=== PATIENT | female | born 1975 ===

== ENCOUNTER 2017-09-09 09:00 | Day surgery (SDC) | payer MEDICAID ==
[2017-01-04 09:34] VITALS: BMI 30.2
--- NOTE | 2017-09-09 10:32 | CP.SDSHP ---
Same Day Surgery H & P - History Proposed Procedure: EGD Pre-Op Diagnosis: abdo pain / vomiting - Allergies Allergies: Allergies No Known Allergies Allergy (Verified 08/28/17 10:03) - Physical Exam General Appearance: nl Vital Signs: Vital Signs 09/09/17 09:39 Temperature 98.9 F Pulse Rate 80 Respiratory 20 Rate Blood Pressure 141/82 O2 Sat by Pulse 99 Oximetry Mental Status: Alert & Oriented x3 Neuro: WNL Heart: WNL Lungs: WNL GI: WNL - {Optional Preform as Required} Abdomen: WNL - Impression Impression: abdo pain / vomiting Pt. Evaluated Today:Candidate for Anesthesia & Procedure: Yes - Date & Time Date: 09/09/17 Time: 10:32 Short Stay Discharge - Short Stay Discharge Admitting Diagnosis/Reason for Visit: EPIGASTRIC PAIN / CONSTIPATION / DISTENTION Disposition: HOME/ ROUTINE
[2017-09-09] MEDS ORDERED: Propofol 10 mg/ml Inj (20 ML) ONE ×2 (10:33→10:38)
[2017-09-09] MEDS ORDERED: Lidocaine Hydrochloride 10 ML INJ ONE (10:33)
[2017-09-09 11:03] VITALS: TEMP 97.6
[2017-09-09 11:47] VITALS: PULSE 85; O2SAT 100
[2017-09-09 11:49] VITALS: BP 137/84; RESP 20
== END 2017-09-09 12:35 | disposition home or self-care (01) ==
LOC: C.ENDO 09:00
PROVIDERS: ATTEND Internal Medicine
DX: R10.13 Epigastric pain (principal); K59.09 Other constipation; R14.0 Abdominal distension (gaseous); B96.81 Helicobacter pylori [H. pylori] as the cause of diseases classified elsewhere; K29.50 Unspecified chronic gastritis without bleeding
CPT/HCPCS: 43239; 84703; 88305; 88313; 88342; J2704

== ENCOUNTER 2018-06-04 09:57 | Emergency (ER) | payer MEDICAID ==
[2018-06-04 10:04] VITALS: BMI 31.1
[2018-06-04 10:07] VITALS: BP 137/91; PULSE 104; RESP 18; TEMP 97.7; O2SAT 100
[2018-06-04] MEDS ORDERED: Naproxen 550 mg Tab PO STA (10:36)
[2018-06-04] MEDS ORDERED: Naproxen 550 mg Tab PO ONE (10:44)
--- NOTE | 2018-06-04 11:27 | C.PDOC ---
History Of Present Illness 42-year-old female presents to the emergency department with complaints of lower back pain since yesterday. Patient states she was cleaning the house and lifting heavy objects, and pain started afterwards. Patient states pain worsens with movement., and she reports a popping sensation when lifting. She is requesting Xrays of her back. Patient denies radiation to lower legs, dysuria/hematuria, urinary retention, bowel/bladder incontinence, sensory changes, or any other associated symptoms. Time Seen by Provider: 06/04/18 10:12 Chief Complaint (Nursing): Back Pain History Per: Patient History/Exam Limitations: no limitations Current Symptoms Are (Timing): Still Present Quality Of Discomfort: "Pain" Severity: Moderate Associated Symptoms: None. denies: Incontinence, New Weakness, New Numbness Exacerbating Factor(s): Movement Past Medical History Reviewed: Historical Data, Nursing Documentation, Vital Signs Vital Signs: Last Vital Signs Temp 97.7 F 06/04/18 10:04 Pulse 104 H 06/04/18 10:04 Resp 18 06/04/18 10:04 BP 137/91 H 06/04/18 10:04 Pulse Ox 100 06/04/18 10:04 - Medical History PMH: Asthma, Gastritis, Hypercholesterolemia Family History: States: Hypertension - Social History Hx Tobacco Use: No Hx Alcohol Use: Yes Hx Substance Use: No - Immunization History Hx Tetanus Toxoid Vaccination: No Hx Influenza Vaccination: No Hx Pneumococcal Vaccination: No Review Of Systems Constitutional: Negative for: Fever, Chills Respiratory: Negative for: Shortness of Breath Gastrointestinal: Negative for: Nausea, Vomiting, Abdominal Pain, Diarrhea Genitourinary: Negative for: Dysuria, Hematuria Musculoskeletal: Positive for: Back Pain Neurological: Negative for: Weakness, Numbness Physical Exam - Physical Exam Appears: Well, Non-toxic, In Acute Distress (in mild pain ) Skin: Normal Color, Warm, Dry, No Rash Eye(s): bilateral: Normal Inspection Oral Mucosa: Moist Neck: Normal, Normal ROM Cardiovascular: Rhythm Regular, No Murmur Respiratory: Normal Breath Sounds, No Rales, No Rhonchi, No Wheezing Gastrointestinal/Abdominal: Normal Exam, Bowel Sounds, Soft, No Tenderness Back: No CVA Tenderness, No Vertebral Tenderness, Paraspinal Tenderness (lumbar, B/L) Extremity: Normal ROM, No Deformity Extremity: Bilateral: Atraumatic, Normal Color And Temperature, Normal ROM Neurological/Psych: Oriented x3, Normal Sensation Gait: Steady ED Course And Treatment O2 Sat by Pulse Oximetry: 100 (RA) Pulse Ox Interpretation: Normal - Other Rad Xray LS spine X-Ray: Interpreted by Me, Viewed By Me (no fractures/listhesis) Progress Note: Xrays of LS spine ordered and reviewed. Patient given PO Naprosyn and Flexeril. Reevaluation Time: 11:20 Reassessment Condition: Improved (On reassessment, patient is resting comfortably and states pain has improved. She is ambulating normally in the ED. Rxs for naprosyn and flexeril given. Patient instructed to follow up with PMD/clinic in 1-2 days, and understands she should return to ED if symptoms worsen.) Disposition Counseled Patient/Family Regarding: Studies Performed, Diagnosis, Need For Followup, Rx Given - Disposition Referrals: [facility] [Outside] Disposition: HOME/ ROUTINE Disposition Time: 11:25 Condition: STABLE Additional Instructions: FOLLOW UP WITH YOUR DOCTOR/CLINIC IN 1-2 DAYS USE MEDICATIONS NEEDED RETURN TO EMERGENCY ROOM IF SYMPTOMS WORSEN SEGUIR CON DUMONT MDICO / CLNICA EN 1-2 BAIG USAR MEDICAMENTOS ROXANA SE NECESITE VUELVA A [place] DE EMERGENCIA SI LOS SNTOMAS SE HACEN PE[place] Prescriptions: RX: Cyclobenzaprine [Flexeril] 10 mg PO BID PRN #15 tab PRN Reason: Muscle Spasm RX: Naproxen 375 mg PO BID PRN #20 tablet PRN Reason: pain Instructions: Low Back Pain (DC) Forms: [employer] (Armenian) Print Language: CAMBODIAN - Clinical Impression Clinical Impression: Low back pain, Lumbar sprain - Scribe Statement The provider has reviewed the documentation as recorded by the Scribe (Anne Ramsey) Provider Attestation: All medical record entries made by the Scribe were at my direction and personally dictated by me. I have reviewed the chart and agree that the record accurately reflects my personal performance of the history, physical exam, medical decision making, and the department course for this patient. I have also personally directed, reviewed, and agree with the discharge instructions and disposition.
--- NOTE | 2018-06-04 11:46 | RAD ---
Date of service: The 06/04/2018 PROCEDURE: Radiographs of the Lumbar Spine. HISTORY: Low back pain COMPARISON: No prior. FINDINGS: BONES: There is normal alignment of the lumbar vertebral bodies. There is normal lumbar lordosis. There is no acute fracture, spondylolysis or spondylolisthesis. There is a limbus vertebra at L4. Bone mineralization is normal. DISC SPACES: Mild degenerative disc disease at L4-5 and L5-S1 with reduced disc heights, anterior spurring and facet arthropathy, worse at L5-S1. OTHER FINDINGS: An IUD overlies the pelvis. IMPRESSION: No acute fracture, spondylolysis or spondylolisthesis.
== END 2018-06-04 11:42 | disposition home or self-care (01) ==
LOC: C.ER 09:57
DX: S33.5XXA Sprain of ligaments of lumbar spine, initial encounter (principal); X50.0XXA Overexertion from strenuous movement or load, initial encounter; Y93.E9 Activity, other interior property and clothing maintenance; Y92.009 Unspecified place in unspecified non-institutional (private) residence as the place of occurrence of the external cause; M54.5 Low back pain

== ENCOUNTER 2018-10-21 08:49 | Emergency (ER) | payer MEDICAID ==
[2018-10-21 08:49] VITALS: BMI 31.1
[2018-10-21 09:06] VITALS: BP 143/88; PULSE 82; RESP 16; TEMP 97.9; O2SAT 100
--- NOTE | 2018-10-21 10:04 | C.PDOC ---
History Of Present Illness 43 y/o female presents to the ED for evaluation of ankle injury. Patient states 2 days ago she was cleaning when she slipped and twisted the left ankle inwards. Since then patient developed left ankle pain, which is worse with weight bearing. She denies any other injury. Denies sensory changes. Time Seen by Provider: 10/21/18 09:13 Chief Complaint (Nursing): Lower Extremity Problem/Injury History Per: Patient History/Exam Limitations: no limitations Onset/Duration Of Symptoms: Days (x2) Current Symptoms Are (Timing): Still Present - Ankle/Foot Description Of Injury: Twisted Past Medical History Reviewed: Historical Data, Nursing Documentation, Vital Signs Vital Signs: Last Vital Signs Temp 97.9 F 10/21/18 09:03 Pulse 82 10/21/18 09:03 Resp 16 10/21/18 09:03 BP 143/88 10/21/18 09:03 Pulse Ox 100 10/21/18 09:03 - Medical History PMH: Asthma, Gastritis, Hypercholesterolemia Denies: Chronic Kidney Disease Family History: States: Unknown Family Hx, Hypertension - Social History Hx Tobacco Use: No Hx Alcohol Use: Yes Hx Substance Use: No - Immunization History Hx Tetanus Toxoid Vaccination: No Hx Influenza Vaccination: No Hx Pneumococcal Vaccination: Yes Review Of Systems Constitutional: Negative for: Fever, Chills Respiratory: Negative for: Shortness of Breath Gastrointestinal: Negative for: Vomiting Musculoskeletal: Positive for: Foot Pain (Left ankle) Skin: Negative for: Rash, Lesions Neurological: Negative for: Weakness, Numbness Physical Exam - Physical Exam Appears: Non-toxic, No Acute Distress Skin: Warm, Dry, No Rash Head: Atraumatic, Normacephalic Eye(s): bilateral: Normal Inspection, PERRL, EOMI Neck: Normal ROM Chest: Symmetrical Respiratory: No Accessory Muscle Use Extremity: Tenderness (to left lateral malleolus), No Calf Tenderness, Capillary Refill (< 2 sec), No Deformity, Swelling (mild swelling to left lateral malleolus) Pulses: Left Dorsalis Pedis: Normal, Right Dorsalis Pedis: Normal Neurological/Psych: Oriented x3, Normal Motor, Normal Sensation ED Course And Treatment O2 Sat by Pulse Oximetry: 100 (RA) Pulse Ox Interpretation: Normal - Other Rad Left Ankle x-ray X-Ray: Interpreted by Me Interpretation: (-) acute fracture or dislocation Progress Note: Lidoderm patch applied for pain control. X-ray taken, and shows no fractures or dislocation. Air cast applied to left lower extremity. Crutches provided, instructed to avoid weight bearing per PT. Patient is stable for discharge home, advised to follow up with orthopedist. Disposition Counseled Patient/Family Regarding: Studies Performed, Diagnosis, Need For Followup, Rx Given - Disposition Referrals: Joshua Ramsey MD [Staff Provider] - [facility] [Outside] Disposition: HOME/ ROUTINE Disposition Time: 10:15 Condition: STABLE Additional Instructions: FOLLOW UP WITH ORTHOPEDICS OR PODIATRY WITHIN 1 WEEK USE MEDICATION FOR PAIN NEEDED ELEVATE ANKLE MUCH POSSIBLE RETURN TO EMERGENCY ROOM IF SYMPTOMS WORSEN Prescriptions: Naproxen 375 mg PO BID PRN #20 tablet PRN Reason: pain Instructions: Ankle Sprain (DC) Forms: [employer] (Cayman Islander) Print Language: BAHAMIAN - Clinical Impression Clinical Impression: Left ankle sprain - Scribe Statement The provider has reviewed the documentation as recorded by the Irma Gray Provider Attestation: All medical record entries made by the Irma were at my direction and personally dictated by me. I have reviewed the chart and agree that the record accurately reflects my personal performance of the history, physical exam, medical decision making, and the department course for this patient. I have also personally directed, reviewed, and agree with the discharge instructions and disposition.
[2018-10-21] MEDS ORDERED: Lidocaine 5% Patch TD STA (10:36)
--- NOTE | 2018-10-21 14:19 | RAD ---
Date of service: 10/21/2018 PROCEDURE: Left Ankle Radiographs. HISTORY: twisted ankle COMPARISON: None available. FINDINGS: BONES: No fracture Inferior calcaneal spur . On the lateral view series 3, image 1 there is some subcortical relative radiolucency projecting over the anterior inferior tibial plafond and the fibula of unclear significance is not reproduced on the other films it may be technical. No cortical interruption here seen. JOINTS: No significant appearing osteoarthritis. Ankle mortise maintained. Talar dome intact SOFT TISSUES: No marked soft tissue swelling seen. There is bandaging of the lower leg. OTHER FINDINGS: None. IMPRESSION: No fracture or dislocation seen. Other findings as above.
== END 2018-10-21 10:50 | disposition home or self-care (01) ==
LOC: C.ER 08:49
DX: S93.402A Sprain of unspecified ligament of left ankle, initial encounter (principal); W01.0XXA Fall on same level from slipping, tripping and stumbling without subsequent striking against object, initial encounter
CPT/HCPCS: 73610; 97116; 97161; 99284; G8978; G8979; G8980

== ENCOUNTER 2018-11-23 15:06 | Emergency (ER) | payer MEDICAID | END 2018-11-23 17:00 | disposition home or self-care (01) | LOC: C.ER 15:06 ==

== ENCOUNTER 2018-12-01 08:54 | Emergency (ER) | payer MEDICAID ==
[2018-12-01 09:05] VITALS: BMI 32.1
[2018-12-01 09:06] VITALS: TEMP 97.6; O2SAT 100
[2018-12-01] MEDS ORDERED: Sodium Chloride 0.9% 1,000 ML IV ONE (09:45)
--- NOTE | 2018-12-01 09:47 | C.PDOC ---
History Of Present Illness 43 y/o female with a PMHx of left ovarian cyst, comes in for evaluation of left groin pain for the past 3-4 days with radiation to lower back. Pain is intermittent and worsening since onset. Patient reports hx of similar pain in the past, when she was diagnosed with ovarian cyst. Otherwise pt denies any recent illness, nausea, vomiting, diarrhea, UTI symptoms, back pain, or other associated complaints. Time Seen by Provider: 12/01/18 09:39 Chief Complaint (Nursing): Abdominal Pain History Per: Patient History/Exam Limitations: no limitations Onset/Duration Of Symptoms: Intermittent Episodes Current Symptoms Are (Timing): Still Present Location Of Pain/Discomfort: LLQ Past Medical History Reviewed: Historical Data, Nursing Documentation, Vital Signs Vital Signs: Last Vital Signs Temp 97.6 F 12/01/18 09:05 Pulse 95 H 12/01/18 09:05 Resp 18 12/01/18 09:05 BP 151/94 H 12/01/18 09:05 Pulse Ox 100 12/01/18 09:05 - Medical History PMH: Asthma, Gastritis, Hypercholesterolemia Denies: Chronic Kidney Disease Other PMH: Ovarian Cyst Family History: States: Unknown Family Hx, Hypertension - Social History Hx Tobacco Use: No Hx Alcohol Use: No Hx Substance Use: No - Immunization History Hx Tetanus Toxoid Vaccination: No Hx Influenza Vaccination: Yes Hx Pneumococcal Vaccination: No Review Of Systems Except As Marked, All Systems Reviewed And Found Negative. Constitutional: Negative for: Fever, Chills Cardiovascular: Negative for: Chest Pain Respiratory: Negative for: Shortness of Breath Gastrointestinal: Positive for: Abdominal Pain (LLQ). Negative for: Nausea, Vomiting, Diarrhea Genitourinary: Positive for: Other (Left inguinal pain). Negative for: Dysuria, Frequency, Incontinence, Hematuria Musculoskeletal: Negative for: Back Pain Skin: Negative for: Rash, Lesions Neurological: Negative for: Weakness, Numbness, Headache ED Course And Treatment - Laboratory Results Result Diagrams: 12/01/18 09:52 12/01/18 09:52 Lab Interpretation: No Acute Changes Urine POC: Negative O2 Sat by Pulse Oximetry: 100 (RA) Pulse Ox Interpretation: Normal - CT Scan/US Transvaginal US Other Rad Studies (CT/US): Radiology Report Reviewed CT/US Interpretation: Accession No. : [id number]. Patient Name / ID : KOBE PALACIOS / [id number]. Exam Date : 12/01/2018 11:49:56 ( Approved ). Study Comment : Sex / Age : F / 43Y. Creator : Regina Hernadez MD. Dictator : Regina Hernadez MD. [employer] : Director Of Community Services : Regina Hernadez MD. Approver2 : Report Date : 12/01/2018 12:39:39. My Comment : . Date of service: 12/01/2018. HISTORY: Left groin pain hx of ovarian cyst. COMPARISON: None available. TECHNIQUE: Transabdominal and transvaginal pelvic ultrasound was performed. FINDINGS: UTERUS: Measures 9.7 x 5.3 x 5.5 cm. Anteverted, normal in size and appearance. There is normal myometrial echotexture. No fibroid or other mass lesion seen. ENDOMETRIUM: Measures 10 mm in diameter. An intrauterine device remains in satisfactory position. CERVIX: No cervical abnormality identified. RIGHT OVARY: Measures 2.6 x 1.8 x 2.1 cm. No solid mass. Normal flow. LEFT OVARY: Measures 2.8 x 2.7 x 2.9 is cm. No solid mass. Normal flow. FREE FLUID: No significant free fluid noted. OTHER FINDINGS: None. IMPRESSION: Unremarkable pelvic ultrasound. IUD remains in satisfactory position. Progress Note: Labs and transvaginal/pelvic US ordered. IV fluids and 30 mg IV Toradol infusing. Pt was OBS in for 3 hours and remained stable, asymptomatic now. On re-eval, pt is afberile, hemodynamicaly stable. Non-toxic. neck: Supple, (-) JVD, (-) carotid bruits. Lungs: CTA B/L, BS equal B/L. Abd: benign, (-) guarding, (-) rebound. back: (-) CVA tenderness. Blood work review no acute abnoramlities noted. UA (+) WBC, RBC, pt currently on menstrual period. Transvag US review (-) acute findings. Pt has clinical findings c/w left groin pain, UTI, early. Pt advised and ref. to F/u with [employer] in 2-3 days for re-eval. if any worsening or new changes- return to ED for re-eavl, pt understand and agrees with plan. Disposition Counseled Patient/Family Regarding: Studies Performed, Diagnosis, Need For Followup, Rx Given - Disposition [facility]] [facility] [Outside] Lidia Jauregui MD [Staff Provider] - Disposition: HOME/ ROUTINE Disposition Time: 12:40 Condition: STABLE Additional Instructions: Encourage fluids take medication for pain as need as prescribed Follow up with PMD, [employer] in 2-3 days for re-evaluation if any worsening or new changes- return to ED for re-evaluation Prescriptions: Nitrofurantoin Macrocrystals [Macrobid] 1 cap PO BID #14 cap traMADol [Ultram] 50 mg PO TID #7 tab Instructions: Urinary Tract Infections in Adults, Ovarian Cysts Forms: [employer] (Romansh) Print Language: MONTENEGRIN - Clinical Impression Clinical Impression: Ovarian cyst, UTI (urinary tract infection) - PA / OUTSOLE CEMENTER / Resident Statement MD/DO has reviewed & agrees with the documentation as recorded. - Scribe Statement The provider has reviewed the documentation as recorded by the Derianibpau Gray All medical record entries made by the Scribe were at my direction and personally dictated by me. I have reviewed the chart and agree that the record accurately reflects my personal performance of the history, physical exam, medical decision making, and the department course for this patient. I have also personally directed, reviewed, and agree with the discharge instructions and disposition.
[2018-12-01] MEDS ORDERED: Sodium Chloride 0.9% 1,000 ML ONE (09:56)
[2018-12-01 10:00] LABS: HCG,QUALITATIVE URINE NEGATIVE (NEGATIVE)
[2018-12-01 10:02] LABS: SQUAMOUS EPITHIAL 1 /hpf (0-5)
[2018-12-01 10:04] LABS: BASO # 0.1 K/uL (0.0-0.2); BASO % 0.7 % (0.0-2.0); EOS # 0.3 K/uL (0.0-0.7); EOS % 2.7 % (0.0-4.0); HEMOGLOBIN 12.6 g/dL (11.0-16.0); LYMPH # 2.1 K/uL (1.0-4.3); LYMPH % 21.5 % (20.0-40.0); MEAN CELL VOLUME 86.7 fL (81.0-99.0); MEAN CORPUSCULAR HEMOGLOBIN 29.1 pg (27.0-31.0); MEAN CORPUSCULAR HGB CONC 33.6 g/dL (33.0-37.0); MEAN PLATELET VOLUME 8.7 fL (7.2-11.7); MONO # 0.8 K/uL (0.0-0.8); MONO % 8.2 % (0.0-10.0); NEUT # 6.4 K/uL (1.8-7.0); NEUT % 66.9 % (50.0-75.0); NRBC % 0.1 % (0.0-2.0); RBC 4.34 Mil/uL (3.80-5.20); RED CELL DISTRIBUTION WIDTH 15.2 % (11.5-14.5); URINE BILIRUBIN NEGATIVE (NEGATIVE); URINE BLOOD 3+ (NEGATIVE); URINE CLARITY Hazy (Clear); URINE COLOR Yellow (YELLOW); URINE GLUCOSE (UA) NORMAL (Normal); URINE PROTEIN 1+ mg/dL (NEGATIVE); WHITE BLOOD COUNT 9.6 K/uL (4.8-10.8)
[2018-12-01 10:06] LABS: URINE LEUKOCYTE ESTERASE 1+ Leu/uL (Negative)
[2018-12-01 10:33] LABS: ALB/GLOB RATIO 1.2 (1.0-2.1); ALBUMIN 4.4 g/dL (3.5-5.0); ALT/SGPT 51 U/L (9-52); AST/SGOT 37 U/L (14-36); BLOOD UREA NITROGEN 16 mg/dL (7-17); CALCIUM 9.3 mg/dl (8.6-10.4); GFR NON-AFRICAN AMERICAN > 60
--- NOTE | 2018-12-01 12:43 | US ---
Date of service: 12/01/2018 HISTORY: Left groin pain hx of ovarian cyst COMPARISON: None available. TECHNIQUE: Transabdominal and transvaginal pelvic ultrasound was performed. FINDINGS: UTERUS: Measures 9.7 x 5.3 x 5.5 cm. Anteverted, normal in size and appearance. There is normal myometrial echotexture. No fibroid or other mass lesion seen. ENDOMETRIUM: Measures 10 mm in diameter. An intrauterine device remains in satisfactory position. CERVIX: No cervical abnormality identified. RIGHT OVARY: Measures 2.6 x 1.8 x 2.1 cm. No solid mass. Normal flow. LEFT OVARY: Measures 2.8 x 2.7 x 2.9 is cm. No solid mass. Normal flow. FREE FLUID: No significant free fluid noted. OTHER FINDINGS: None. IMPRESSION: Unremarkable pelvic ultrasound. IUD remains in satisfactory position.
[2018-12-01 12:56] VITALS: BP 147/89; PULSE 87; RESP 19
== END 2018-12-01 13:36 | disposition home or self-care (01) ==
LOC: C.ER 08:54
DX: N39.0 Urinary tract infection, site not specified (principal); N83.209 Unspecified ovarian cyst, unspecified side; E78.00 Pure hypercholesterolemia, unspecified
CPT/HCPCS: 76830; 76856; 80053; 81001; 84703; 85025; 96361; 96374; 99284; J1885; J7030